=== PATIENT | female | born 1980 | race Caucasian/White ===

== ENCOUNTER 2025-03-14 04:19 | Emergency (ER) | payer BC, MEDICAID ==
[2025-03-14 04:37] VITALS: BP 171/111; PULSE 96
[2025-03-14] MEDS: Take Home: Sulfamethoxazole/Trimethoprim 800-160 MG Tab, 6 Tab Pack PO ONE (04:48)
[2025-03-14] MEDS: Take Home: Cephalexin 500 MG Cap, 6 Cap Pack PO ONE (04:48)
== END 2025-03-14 04:54 | disposition home or self-care (01) ==
LOC: SUPCPDRO 04:19 → VM.ED 04:19
DX: L03.011 Cellulitis of right finger (principal); Z79.899 Other long term (current) drug therapy
CPT/HCPCS: 99283; A9270-GY